=== PATIENT | female | born 1975 | race Caucasian/White ===

== ENCOUNTER → 2017-11-29 | Outpatient (REF) ==
[2017-11-29 15:30] LABS: C-REACTIVE PROTEIN 0.5 mg/dL (0.0-0.9)
[2017-11-29 15:56] LABS: THYROID STIMULATING HORMONE 1.4 uIU/mL (0.465-4.680)
== END ==
LOC: ZLAB.WCH 14:58
PROVIDERS: Urology
DX: Z01.89 Encounter for other specified special examinations (principal)

== ENCOUNTER → 2018-08-29 | Outpatient (REF) ==
[2018-08-29 17:20] LABS: THYROID STIMULATING HORMONE 1.2 uIU/mL (0.465-4.680)
== END ==
LOC: ZLAB.WCH 16:22
PROVIDERS: Urology
DX: Z01.89 Encounter for other specified special examinations (principal)

== ENCOUNTER → 2019-12-20 | Outpatient (CLI) | payer OTHER | LOC: MC.RAD 15:01 | DX: Z12.31 Encounter for screening mammogram for malignant neoplasm of breast (principal) ==

== ENCOUNTER → 2023-11-17 | Outpatient (CLI) | payer OTHER | LOC: MC.RAD 17:11 | DX: Z12.31 Encounter for screening mammogram for malignant neoplasm of breast (principal) ==